=== PATIENT | female | born 2000 | race Caucasian/White ===

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

== ENCOUNTER 2023-10-31 09:34 | Outpatient (CLI) | payer OTHER, SELFPAY ==
--- OUTSIDE RECORDS SUMMARY | 2023-10-31 09:36 | XMS_ITS | Clinical Summary ---
Author Organization [facility] Address [place], [place] [address] Care Team Providers Care Gastroenterology Manager Name Role Phone Jennifer Reinoso Primary Care Provider Unavail able Allergies Active Allergy Reactions Criticality Noted Date Comments Amoxicillin Rash 09/29/2013 Maculopapular rash 3 days after stopping med Medications Medication Sig Dispensed Refills Start Date End Date Status norgestimate-ethinyl estradiol, 0.25-35 mg-mcg, (ORTHO-CYCLEN, 28,) 0.25-35 mg-mcg tabletIndications:Dys menorrhea Take 1 tablet by mouth once daily. 3 Package 3 12/04/2019 Active norethindrone, Contraceptive, (MICRONOR, 28,) 0.35 mg tabletIndications:Men orrhagia with regular cycle Take 1 tablet by mouth once daily. 3 Package 1 05/17/2020 Active fluticasone (50 mcg per actuation) nasal solution (FLONASE)Indications: Sore throat,Non-seasonal allergic rhinitis, unspecified trigger SHAKE LIQUID AND USE 2 SPRAYS IN EACH NOSTRIL EVERY DAY 48 g 3 01/22/2023 Active Active Problems Problem Noted Date Diagnosed Date Insomnia 04/27/2017 Acne vulgaris 04/23/2017 Overview: ID # is [id number] Skin lesion 04/23/2017 Allergic rhinitis 09/24/2013 Immunizations Name Administration Dates Next Due COVID-19 vaccine ([place] [employer] 30mcg/0.3mL) PF, MDV 01/03/2021,12/10/2020 DTaP 01/06/2008, 4,01/06/2003,10/29,2002 HIB-HepB (Comvax) 06/29/2003,2002,08/05/19 03 HPV 9 (Gardasil 9) 01/23/2020,12/04/2019 Hepatitis A (Peds) 02/05/2018,04/23/2017 Inactivated Polio Vaccine 01/06/2008,,2002,08/04 MMR 01/06/2008,11/30/2003,08/31/2003 Meningococcal Vaccine (Menveo) 07/30/2018,2014 Pneumococcal conj 7-Valent (Prevnar 7) 3,2002,2002 Tdap 12/31/2014 Varicella Vaccine 01/06/2008,06/29/2003 Family History Medical History Relation Name Comments Good Health Father Anxiety disorder Maternal Grandmother Good Health Mother Cancer Paternal Grandmother ?primar y in uterus and then cancer spread everywhere? Relation Name Status Comments Father Maternal Grandmother Mother Paternal Grandmother Social History Tobacco Use Types Packs/Day Years Used Date Smoking Tobacco: Never Smokeless Tobacco: Never Tobacco Cessation:Counseling Given: Yes Comments:no passive smoke exposure Alcohol Use Standard Drinks/Week Comments No 0 (1 standard drink = 0.6 oz pur e alcohol) PHQ-2 Answer Date Recorded PHQ-2 TOTAL SCORE 1 02/19/2020 Social Connections Answer Date Recorded Frequency of Communication with Friends and Fami ly Not on file 11/25/2022 Financial Resource Strain Answer Date R ecorded Difficulty of Paying Living Expenses Not on file 05/14/2021 Difficulty of Paying Living Expenses Not on file 05/14/2021 Sex and Gender Information Value Date Recorded Sex Assigned at Not on file Gender Identity Not on file Sexual Orientation Not on file Obstetrics History Last Filed Vital Signs Vital Sign Reading Time Taken Comments Blood Pressure 124/70 12/25/2022 11:45 AM CDT Pulse 73 12/25/2022 11:45 AM CDT Temperature 37 ??C (98.6 ??F) 12/25/2022 11: 45 AM CDT Respiratory Rate - - Oxygen Saturation 98% 12/25/2022 11: 45 AM CDT Inhaled Oxygen Concentration - - Weight 73.9 kg (162 lb 14.4 oz) 023 11:45 AM CDT Height 165.1 cm (5' 5) 12/25/2022 11:4 5 AM CDT Body Mass Index 27.11 12/25/2022 11:45 AM CDT Plan of Treatment Health Maintenance Due Date Last Done Comments HIV for age 15-65 2017 Chlamydia for age 16-24 2018 HPV series for age 9-26 (3 - 3-dose series) 06/05/2020 01/23/2020, 12/04/2019 Hepatitis C screening for age 18-79 2020 Depression screening for age 12+ 02/18/2021 02/19/2020, 03/06/2019, 04/08/2018, Additional history exists COVID-19 vaccine series ( - 2022- season) 2023 01/03/2021, 12/10/2020 Pap test for age 21-65 2023 BMI (ht and wt on same day) for age 18+ 12/26/2023 12/25/2022 Influenza for age 9-49 01/13/2024 Tetanus booster 12/31/2024 12/31/2014 Pneumococcal series for age 6-64 Aged Out 01/06/2003, 2002, 2002 No longer eligible based on patient's age to complete this topic Tdap Completed 12/31/2014 Meningococcal series for age 11-21 Completed 07/30/2018, 12/31/2014 Care Teams Gastroenterology Manager Relationship Specialty Start Date End Date Jennifer Reinoso PCP - General 04/16/17
[2023-10-31 12:33] LABS: Chlamydia DNA Amplified* NOT DETECTED (No Detected); GC DNA Amplified* NOT DETECTED (No Detected)
== END 2023-10-31 09:35 | disposition home or self-care (01) ==
LOC: NFLDREF 09:34
PROVIDERS: PCP Registered Nurse; Visit Provider Registered Nurse
DX: Z11.3 Encounter for screening for infections with a predominantly sexual mode of transmission (principal)
CPT/HCPCS: 87491; 87591

== ENCOUNTER 2024-03-03 16:05 | Outpatient (CLI) | payer OTHER, SELFPAY ==
--- OUTSIDE RECORDS SUMMARY | 2024-03-03 16:19 | XMS_ITS | Clinical Summary ---
Author Organization [facility] Address [place], [place] [address] Care Team Providers Care Shipyard Painter Helper Name Role Phone Clinic, [facility] Primary Care Pr ovider Allergies Active Allergy Reactions Criticality Noted Date [...] Diagnosed Date Insomnia 04/27/2017 Acne vulgaris 04/23/2017 Overview (04/05/2018): ID # is [id number] Skin lesion 04/23/2017 Allergic rhinitis 09/24/2013 Immunizations Name Administration Dates Next Due COVID-19 vaccine ([employer] [place] [employer] 30mcg/0.3mL) MANDI VIERA 01/03/2021,12/10/2020 DTaP 01/06/2008, 4,01/06/2003,10/29,2002 HIB-HepB (Comvax) 06/29/2003,2002,08/05/19 03 HPV 9 (Gardasil 9) 01/23/2020,12/04/2019 Hepatitis A (Peds) 02/05/2018,04/23/2017 Inactivated Polio Vaccine 01/06/2008,,2002,08/04 MENINGOCOCCAL VACCINE 2 VIAL [id number] (MENVEO) 07/30/2018,12/31/2014 MMR 01/06/2008,11/30/2003,08/31/2003 Pneumococcal conj 7-Valent (Prevnar 7) 3,2002,2002 Tdap [...] 02/18/2021 02/19/2020, 03/06/2019, 04/08/2018, Additional history exists BMI (ht and wt on same day) for age 18+ 12/26/2023 12/25/2022 COVID-19 vaccine series (2023- season) 2024 01/03/2021, 12/10/2020 Influenza for age 9-49 01/13/2024 Tetanus booster 12/31/2024 12/31/2014 Pap test for age 21-65 10/30/2026 10/31/2023, 2023 Pneumococcal series for age 6-64 Aged Out 01/06/2003, 2002, 2002 No longer eligible based on patient's age to complete this topic Tdap Completed 12/31/2014 Meningococcal series for age 11-21 Completed 07/30/2018, 12/31/2014 Procedures Procedure Name Priority Date/Time Associated Diagnosis Comments HPV HIGH RISK Routine 10/31/2023 9:06 AM CDT from Last 3 Months or Most Recently Relevant to Health Maintenance Results * HPV HIGH RISK (10/31/2023 9:06 AM CDT) TYPE 16 Negative Negative 11/06/2023 1:10 PM CDT [facility] TYPE 18 Negative Negative 11/06/2023 1:10 PM CDT [facility] OTHER HIGH RISK TYPES Negative Negative 11/06/2023 1:10 PM CDT [facility] Other (Cervical) 10/31/2023 9:06 AM CDT 11/02/2023 11:53 AM CDT Narrative [facility] - 11/06/2023 1:10 PM CDT HPV types 16, 18, 31, 33, 35, 39, 45, 51, 52, 56, 58, 59, 66 and 68 DNA were undetectable or below the pre-set threshold. Methodology: Jean Michelle 4800 HPV Test Doctor Unknown [facility] [address] [place] [address], from Last 3 Months or Most Recently Relevant to Health Maintenance Care Teams Shipyard Painter Helper Relationship Specialty Start Date End Date Clinic, [facility] [address] [place] [address] PCP - General 12/24/23
--- OUTSIDE RECORDS SUMMARY | 2024-03-03 16:19 | XMS_ITS | Clinical Summary ---
Author Organization [facility] Address [address] [place] [address]. [place] [address] [place] [address] Care Team Providers Care Aircraft Log Clerk Name Role Phone None, Provider MD Primary Care Provider Unavaila ble Allergies Active Allergy Reactions Criticality Noted Date Comments Amoxicillin Rash Low 09/29/2013 Maculopapular rash 3 days after stopping med Penicillins Rash Low 09/06/2022 Medications drospirenone-et hinyl estradiol 3-0.02 MG tablet TAKE THE FIRST TABLET ON THE FIRST SUNDAY FOLLOWING THE BEGINNING OF YOUR PERIOD. THEN CONTINUE TO TAKE 1 TABLET BY MOUTH EVERY DAY 2 Active Active Problems Problem Noted Date Diagnosed Date Insomnia 04/27/2017 Acne vulgaris 04/23/2017 Overview (09/09/2022): ID # is [id number] Skin lesion 04/23/2017 Allergic rhinitis 09/24/2013 Social History Tobacco Use Types Packs/Day Years Used Date Smoking Tobacco: Never Smokeless Tobacco: Never Comments No Sex and Gender Information Value Date Recorded Sex Assigned at Not on file Legal Sex Female 4:46 PM CDT Gender Identity Not on file Sexual Orientation Not on file Last Filed Vital Signs Vital Sign Reading Time Taken Comments Blood Pressure 124/66 09/09/2022 12:20 PM CDT Pulse 70 09/09/2022 12:20 PM CDT Temperature 36.7 ??C (98.1 ??F) 09/09/2022 12:20 PM C DT Respiratory Rate 17 09/09/2022 12:20 PM CDT Oxygen Saturation 99% 09/09/2022 12:20 PM CDT Inhaled Oxygen Concentration - - Weight 71.2 kg (157 lb) 09/09/2022 12:20 PM CDT Height 167.6 cm (5' 6) 09/09/2022 12:20 PM CDT Body Mass Index 25.34 09/09/2022 12:20 PM CDT Plan of Treatment Health Maintenance Due Date Last Done Comments Cervical Cancer Screening Pap Smear (Age 21 to 29) Every 3 Years 2002 Cervical Cancer Screening 2002 Annual Physical 2005 HPV Vaccines (3 - 3-dose series) 06/05/2020 01/23/2020, 12/04/2019 Hepatitis C 2020 COVID-19 Vaccine ( season) 2024 01/03/2021, 12/10/2020 Influenza Adult (#1) 2024 DTaP, Tdap and Td Vaccines (7 - Td or Tdap) 12/31/2024 12/31/2014, 01/06/2008, 11/30/2003, Additional history exists Pneumococcal Vaccine: Pediatrics (0 to 5 Years) and At-Risk Patients (6 to 64 Years) Aged Out 01/06/2003, 2002, 2002 No longer eligible based on patient's age to complete this topic Hepatitis B Vaccines Completed 06/29/2003, 2002, 2002 Meningococcal Vaccine Completed 07/30/2018, 015 RSV Immunizations Under 20 Months Aged Out No longer eligible based on patient's age to complete this topic Care Teams Aircraft Log Clerk Relationship Specialty Start Date End Date None, Provider, MD PCP - General UNKNOWN PHYSICIAN SPECIALTY 09/06/22
== END 2024-03-03 16:06 | disposition home or self-care (01) ==
PROVIDERS: PCP Registered Nurse; Visit Provider Registered Nurse
DX: R53.83 Other fatigue (principal); F41.9 Anxiety disorder, unspecified
CPT/HCPCS: 80053; 82306; 82728; 84443; 86038; 86140; 86200; 86431; 86618

== ENCOUNTER 2024-04-09 08:38 | Outpatient (CLI) | payer OTHER, SELFPAY ==
--- OUTSIDE RECORDS SUMMARY | 2024-04-09 08:40 | XMS_ITS | Clinical Summary ---
Author Organization [facility] Address [place], [place] [address] Care Team Providers Care Tractor Operator Name Role Phone Clinic, [facility] Primary Care Pr ovider Allergies Active Allergy [...] vulgaris 04/23/2017 Overview (04/05/2018): ID # is [id number] Skin lesion 04/23/2017 Allergic rhinitis 09/24/2013 Immunizations Name Administration Dates Next Due COVID-19 vaccine ([employer] NTLaunchGram 30mcg/0.3mL) MANDI VIERA 01/03/2021,12/10/2020 DTaP 01/06/2008, 4,01/06/2003,10/29,2002 [...] 73 12/25/2022 11:45 AM CDT Temperature 37 C (98.6 F) 12/25/2022 11:45 AM CDT Respiratory Rate - - Oxygen [...] age 18+ 12/26/2023 12/25/2022 COVID-19 vaccine series ( season) 2024 01/03/2021, 12/10/2020 Influenza for age [...] 16 Negative Negative 11/06/2023 1:10 PM CDT [facility] TYPE 18 Negative Negative 11/06/2023 1:10 PM CDT [facility] OTHER HIGH RISK TYPES Negative Negative 11/06/2023 1:10 PM CDT [facility] Other (Cervical) 10/31/2023 9:06 AM CDT 11/02/2023 11:53 AM CDT Narrative [facility] - 11/06/2023 1:10 PM CDT HPV types 16, 18, 31, 33, 35, 39, 45, 51, 52, 56, 58, 59, 66 and 68 DNA were undetectable or below the pre-set threshold. Methodology: Jean Michelle 4800 HPV Test Doctor Unknown MICRO[facility] [address] [place] [address], from Last 3 Months or Most Recently Relevant to Health Maintenance Care Teams Tractor Operator Relationship Specialty Start Date End Date Clinic, [facility] [address] [place] [address] PCP - General 12/24/23
--- OUTSIDE RECORDS SUMMARY | 2024-04-09 08:40 | XMS_ITS | Clinical Summary ---
Author Organization [facility] Address [address] [place] [address]. [place] [address] [place] [address] Care Team Providers Care Process Tank Tender Name Role Phone None, Provider MD Primary [...] vulgaris 04/23/2017 Overview (09/09/2022): ID # is [id number] Skin lesion 04/23/2017 Allergic rhinitis 09/24/2013 Social [...] 70 09/09/2022 12:20 PM CDT Temperature 36.7 C (98.1 F) 09/09/2022 12:20 PM CDT Respiratory Rate 17 09/09/2022 12:20 PM CDT [...] age to complete this topic Care Teams Process Tank Tender Relationship Specialty Start Date End Date None, Provider, PCP - General UNKNOWN PHYSICIAN SPECIALTY 09/06/22
[2024-04-09 15:28] LABS: Chlamydia DNA Amplified* NOT DETECTED (No Detected); GC DNA Amplified* NOT DETECTED (No Detected)
== END 2024-04-09 08:39 | disposition home or self-care (01) ==
PROVIDERS: PCP Registered Nurse; Visit Provider Registered Nurse
DX: Z11.3 Encounter for screening for infections with a predominantly sexual mode of transmission (principal)
CPT/HCPCS: 87491; 87591